=== PATIENT | female | born 1950 | race Caucasian/White ===

== ENCOUNTER 2018-01-30 08:27 | Observation (INO) | payer MEDICARE, MEDICAID ==
[2018-01-30] VITALS (11 sets, daily range): BP systolic 104–170; BP diastolic 51–92
[~2018-01-30] VITALS: Ht 172.7 cm; Wt 115.2 kg
[~2018-01-30 08:27] MED LIST: ADULT LOW DOSE81 MG PO; CARDURA8 MG PO; CELEXA40 MG PO; COREG6.25 MG; FLONASE 0.05%50 MCG NASAL; HYDRALAZINE 5050 MG PO; ISORDIL10 MG PO; LANTUS SUBQ; NITROSTAT0.4 MG SUBLING; NORVASC10 MG PO; NOVOLOG FL100 UNIT/M SUBQ; SYNTHROID175 MCG PO; SYNTHROID200 MCG PO; ZEMPLAR1 MCG PO
[2018-01-30 09:23] LABS: HEMATOCRIT 36.1 % (37.0-47.0); MCH 34.7 pg (26.0-34.0); MCHC 33.2 g/dL (28.0-37.0); MCV 104.4 fL (80.0-100.0); RBC 3.46 mil/uL (4.20-5.00); RDW-CV 14.5 % (10.5-14.5); WBC 14.8 thou/uL (4.0-11.0)
[2018-01-30] MEDS ORDERED: LEVEMIR SUBQ (09:27)
[2018-01-30 09:33] LABS: APTT 27.3 Seconds (25.0-31.3); INR 1.1; PROTIME 10.4 Seconds (9.20-11.50)
[2018-01-30] MEDS ORDERED: LASIX 40 MG TAB40 M2 PO (09:34)
[2018-01-30] MEDS ORDERED: RENVELA800 MG PO (09:37)
[2018-01-30] MEDS ORDERED: ZAROXOLYN 5MG TA5 MG PO (09:38)
[2018-01-30 09:39] LABS: ALBUMIN 3.6 g/dL (3.4-5.0); ALKALINE PHOSPHATASE 90 U/L (46-116); ANION GAP 13 mmol/L (7-16); BUN 42 mg/dL (7-18); CALCIUM 9.7 mg/dL (8.5-10.1); CHLORIDE 97 mmol/L (98-107); CHOLESTEROL 173 mg/dL (<200); CO2 27 mmol/L (21-32); GLUCOSE 195 mg/dL (70-99); HDL CHOLESTEROL 60 mg/dL (>40); LDL CHOLESTEROL 94 mg/dL (<100); SGOT 13 U/L (15-37); SGPT 26 U/L (30-65); SODIUM 137 mmol/L (136-145); TC:HDL 2.9 Ratio (Not establshd); TOTAL BILIRUBIN 0.4 mg/dL (<0.1-1.0); TOTAL PROTEIN 8.3 g/dL (6.4-8.2); TRIGLYCERIDE 99 mg/dL (<150); VLDL 20 mg/dL (<40)
[2018-01-30] MEDS ORDERED: TYLENOL EXTRA500 MG PO (09:39)
[2018-01-30 09:40] LABS: SERUM ASSESSMENT Clear
--- NOTE | 2018-01-30 16:30 | EKG ---
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1950 Requested By: Adama Rosales Order Number: [id number] Reading MD: Adama Rosales Measurements Intervals [place] Rate: 62 P: 33 DC: 239 QRS: -18 QRSD: 118 T: 78 QT: 492 QTc: 500 Interpretive Statements Sinus rhythm Prolonged DC interval LVH with secondary repolarization abnormality Borderline prolonged QT interval Compared to ECG 01/23/2014 09:51:14 First degree AV block now present Left ventricular hypertrophy now present Early repolarization now present Sinus bradycardia no longer present T-wave abnormality no longer present Electronically Signed On 01-30-2018 16:30:15 CDT by Adama Rosales [email or web address] <ELECTRONICALLY SIGNED> By: Adama Rosales MD, FACC 01/30/18 1630 1007 1007 Adama Rosales MD, FAC /EPI
--- NOTE | 2018-01-30 16:30 | EKG ---
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1950 Requested By: Julien Louie Order Number: [id number] Reading MD: Adama Rosales Measurements Intervals [place] Rate: 59 P: 30 WI: 70 QRS: -12 QRSD: 118 T: 80 QT: 515 QTc: 511 Interpretive Statements Sinus rhythm Short WI interval Incomplete left bundle branch block LVH with secondary repolarization abnormality Prolonged QT interval Compared to ECG 01/23/2014 09:51:14 Short WI interval now present Left bundle-branch block now present Left ventricular hypertrophy now present Early repolarization now present Sinus bradycardia no longer present T-wave abnormality no longer present Electronically Signed On 01-30-2018 16:30:35 CDT by Adama Rosales [email or web address] <ELECTRONICALLY SIGNED> By: Adama Rosales MD, [facility] 01/30/18 1630 1341 1341 Adama Rosales MD, [facility] /EPI
--- NOTE | 2018-01-30 17:00 | NUR ---
PT ADMITTED FROM VIDEO GAME MAKER AFTER CARDIAC CATH WITH 3 STENTS PLACED. R GROIN INSERTION, DRESSING CDI. SITE SOFT, TENDER WITH NO BRUISING NOTED. SR ON MONITOR. PEDAL PULSES PRESENT AND EQUAL BILATERAL. PT ALERT AND ORIENTED X4, PLEASANT. PT REPORTS BEING INCONTINENT OF BOWEL AND BLADDER. PT ORIENTED TO ROOM, ABLE TO MAKE NEEDS KNOWN, CALL LIGHT IN REACH.
[2018-01-31] VITALS: BP 134/43
[2018-01-31 04:00] VITALS: BP 158/58
[2018-01-31 05:35] LABS: HEMATOCRIT 29.2 % (37.0-47.0); MCHC 33.7 g/dL (28.0-37.0); MPV 9.5 fl. (7.2-11.1); RBC 2.81 mil/uL (4.20-5.00); RDW-CV 14.7 % (10.5-14.5); WBC 13.7 thou/uL (4.0-11.0)
[2018-01-31 05:42] LABS: HEMOGLOBIN 9.8 gm/dL (12.0-15.0)
[2018-01-31 05:44] LABS: ALBUMIN 2.8 g/dL (3.4-5.0); CALCIUM 8.6 mg/dL (8.5-10.1); CREATININE 5.6 mg/dL (0.6-1.3); POTASSIUM 3.7 mmol/L (3.5-5.1); TOTAL BILIRUBIN 0.4 mg/dL (<0.1-1.0); TOTAL PROTEIN 6.7 g/dL (6.4-8.2); TROPONIN-I LEVEL 0.1 ng/mL (<0.06)
--- NOTE | 2018-01-31 06:52 | NUR ---
PT IS ABLE TO COMMUNICATE HER NEEDS TO STAFF EFFECTIVELY. SHE HAS DENIED THE NEED FOR PAIN MEDICATION UP TO THIS TIME. PT IS CURRENTLY RECEIVING DIALYSIS ON A M/W/F SCHEDULE AND, SUCH, SHOULD RECEIVE A RUN TODAY. RIGHT ARM FISTULA IS POSITIVE FOR THRILL AND BRUIT. SHE HAS BEEN INCONTINENT AT TIMES, BUT HAS ALSO STARTED GETTING UP TO THE COMODE WITH SOME SUCCESS WELL.
[2018-01-31 08:00] VITALS: BP 152/53
[2018-01-31 10:58] VITALS: BP 152/53
[2018-01-31 12:00] VITALS: BP 154/52
--- NOTE | 2018-01-31 15:08 | EKG ---
[place] [address] ELECTROCARDIOGRAM REPORT Name: NIMO LEE Room: [address]#: [id number] Admission: 01/30/18 Attend Phys: Adama Rosales MD Discharge: Date of : 52 Report #: [id number] THIS REPORT FOR: //name// [facility] Test Date: 2018-01-31 Test Time: 04:12:19 Pat Name: NIMO LEE Department: Room: [facility] Gender: F Counter Molder: DAVID : 1950 Requested By: Julien Louie Order Number: [id number] Reading MD: Julien Louie Measurements Intervals [place] Rate: 67 P: 46 OK: 236 QRS: 3 QRSD: 121 T: 80 QT: 482 QTc: 509 Interpretive Statements Sinus rhythm Prolonged [place] interval Left bundle branch block Compared to ECG 01/30/2018 13:41:06 First degree AV block now present Short [place] interval no longer present Left ventricular hypertrophy no longer present Early repolarization no longer present Prolonged QT interval no longer present Electronically Signed On 01-31-2018 15:08:38 CDT by Julien Louie [email or web address] <ELECTRONICALLY SIGNED> By: Julien Louie MD, [facility] 01/31/18 1508 0412 0412 Julien Louie MD, [facility] /EPI
--- NOTE | 2018-01-31 16:39 | CARD ---
[address] [address] CARDIAC CATH REPORT Name: NIMO LEE Room: [address] Betty Diaz#: [id number] Admission: 01/30/18 Attend Phys: Adama Rosales MD Discharge: Date of : 52 Report #: [id number] THIS REPORT FOR: //name// APPROVED REPORT Study performed: 01/30/2018 11:09:23 Patient Details Patient Status: Out-Patient Room #: The patient is a 67 year-old female Event Personnel Adama Rosales Water Sander, Kavya Vivas RN Astronaut Mission Specialist, Tamiko Paniagua Monitor, José Luis Tavares Holkins, John Camera Repair Technician, Anna Patel RTEyad Monitor Procedures Performed Art Access - R femoral artery* Left Heart Cath w/LT VGram [id number] LHCLV RENEE Place w/wo Plasty Single LAD [id number] RENEE Place w/wo Plasty Single RCA [id number]; anginoplasty of the ostium of the first diagonal branch Indication Positive stress test Risk Factors Hypercholesterolemia, HypertensionRenal Failure Admission/Lab Medications/Medications given during procedure Aspirin, Platelet Aff. Inhib., Angiomax bolus and infusion Procedure Narrative The patient was brought electively to the Cardiac Catheterization Laboratory and was prepped and draped in a sterile manner. The right femoral was infiltrated with 2% Lidocaine subcutaneous anesthesia. A 6fr Ultimum Sheath sheath was inserted into the right femoral artery. Coronary angiography was performed using coronary diagnostic catheters. The right coronary system was accessed and visualized with a Diagnostic 6fr JR 4 catheter. The left coronary system was accessed and visualized with a Diagnostic 6fr JL 4 catheter. The left ventricle was accessed and visualized with a Diagnostic pigtail catheter. Left ventricular/Aortic Valve gradient assessed via catheter pullback. Left ventriculogram was performed in VELEZ projection. Pre-demployment femoral angiogram was performed . Closure device was deployed with a 6 Fr MynxGrip 6/7F[place] [address] CARDIAC CATH REPORT Name: NIMO LEE Room: [address]#: [id number] Admission: 01/30/18 Attend Phys: Adama Rosales MD Discharge: Date of : 52 Report #: [id number] the procedure well and there were no complications associated with the procedure. There was no hematoma. Intraoperative Conscious Sedation Sedation start time: 11:30 Case end Time: 12:56 Fentanyl 25 mcg Versed 1 mg Fluoro Time: 21.8 minutes Dose: DAP 723088 cGycm2 4273.62 mGy Contrast Type and Amount: Visipaque 520 ml Diagnostic Cath Left Main 0% narrowing LAD 90% tubular stenosis of the mid LAD with 90% ostial first diagonal stenosis Circumflex Nondominant vessel with 30% mid vessel narrowing Right Coronary Large dominant vessel with 75% eccentric mid right coronary stenosis 40% distal narrowing and 75% stenosis of the midportion of the posterior descending branch Left Ventriculography The left ventricle is normal in size with normal contractility. The left ventricular ejection fraction is estimated to be 65%. Left ventricular wall motion abnormalities are not present. There is no mitral insufficiency. Hemodynamics The aortic pressure is 182/66 mmHg with a mean of mmHg. The left ventricular pressure is 163/10 mmHg with a mean of mmHg. The left ventricular end diastolic pressure is 18 mmHg. There was no gradient across the aortic valve upon pullback. PCI Technique Lesion Anticoagulation was achieved with Angiomax. Percutaneous coronary intervention was performed on the first diagnonal branch segment. The lesion stenosis prior to intervention was 90% with HAMILTON 3 flow. A 6F XB LAD 3.5 Guide Catheter was used to engage the LCA ostium. A IG: BMW 190cm Interventional Guidewire was used to cross the lesion. BALLOON DILATION A Balloon catheter Mini Trek RX 1.5 X 8 was inserted and inflated up to 10.00atm for 6seconds. Final angiography reveals 40 % stenosis with [place]IL[place] 3 [place] [address] CARDIAC CATH REPORT Name: NIMO LEE Room: [address] M.R.#: [id number] Admission: 01/30/18 Attend Phys: Adama Rosales MD Discharge: Date of : 52 Report #: [id number] PCI Technique Lesion 3 Percutaneous Coronary Intervention was performed on the midl left anterior descending artery segment. Percutaneous coronary intervention was performed on the mid left anterior descending artery segment. The lesion stenosis prior to intervention was 90% with HAMILTON 3 flow. A 6F XB LAD 3.5 Guide Catheter was used to engage the LCA ostium. A IG: ProwaterFlex 180CM Interventional Guidewire was used to cross the lesion. Balloon Dilation A Balloon catheter NC Trek RX 2.25x12 was inserted and inflated up to 12.00atm for 11seconds. Additional Inflation: 16.00atm for 10seconds. Additional Inflation: 22.00atm for 16seconds. 22 RUBEN X 11 SECONDS 24 RUBEN X 16 SECONDS 25 RUBEN X 13 SECONDS Stent Deployment A drug-eluting stent Xience Alpine RX 2.25X28, 2.5x15 was inserted and inflated up to 8.00, 12-14atm for 9seconds. Additional Inflation: 10.00atm for 7seconds. Additional Inflation: 15.00atm for 9seconds. Final angiography reveals 10 % stenosis with HAMILTON 3 flow. BALLOON DILATION A Balloon catheter NC Trek RX 2.5 X 8 was inserted and inflated up to 24atm for 27seconds. Additional Inflation: 25atm for 17seconds. Additional Inflation: 16atm for 10seconds. 10 RUBEN X 6 SECONDS STENT DEPLOYMENT A drug-eluting stent Xience Alpine RX 2.5X15 was inserted and inflated up to 14atm for 11seconds. Additional Inflation: 12atm for 9seconds. Additional Inflation: 15atm for 9seconds. POST STENT DEPLOYMENT BALLOON DILATION A Balloon catheter NC Trek RX 2.5 X 12 was inserted and inflated up to 14atm for 8seconds. Additional Inflation: 16atm for 7seconds. Additional Inflation: 18atm for 10seconds. PCI Technique Lesion 4 Percutaneous Coronary Intervention was performed on the mid right coronary artery. Percutaneous coronary intervention was performed on the mid right coronary artery. The lesion stenosis prior to intervention was 75% with HAMILTON 3 flow. A 6F JR 4.0 Guide Catheter was used to engage the LCA ostium. A IG: ProwaterFlex 180CM Interventional Guidewire was used to cross the lesion. [facility] [address] [place] [address] CARDIAC CATH REPORT Name: NIMO LEE Room: [address]R.#: [id number] Admission: 01/30/18 Attend Phys: Adama Rosales MD Discharge: Date of : 52 Report #: [id number] Balloon Dilation A Balloon catheter NC Trek RX 2.5 X 12 was inserted and inflated up to 16.00atm for 12seconds. Stent Deployment A drug-eluting stent Xience Alpine RX 3.5X18 was inserted and inflated up to 10.00atm for 13seconds. Additional Inflation: 14.00atm for 8seconds. Additional Inflation: 15.00atm for 9seconds. Final angiography reveals 0 % stenosis with HAMILTON 3 flow. Conclusion #1 significant multivessel coronary artery disease characterized by the following: A 90% tubular mid LAD stenosis with 90% ostial first diagonal narrowing B 30% mid circumflex narrowing, this being a nondominant vessel C large dominant right coronary artery with 75% eccentric mid vessel narrowing 30% distal narrowing and 75% stenosis of the midportion of the posterior descending branch #2 normal left ventricular systolic function, estimate ejection fraction being 65% #3 moderate systemic systolic hypertension #4 successful percutaneous coronary intervention with deployment of sequential drug-eluting stents at the site of 90% mid LAD stenosis with 10% residual narrowing and HAMILTON-3 flow the distal vessel. #5 Successful percutaneous coronary angioplasty at the site of 90% ostial first diagonal narrowing with 40% narrowing following balloon dilatation #6 successful percutaneous coronary intervention with deployment of drug-eluting stent at the site of 75% eccentric mid right coronary stenosis with 0% residual narrowing following stent deployment and HAMILTON-3 flow the distal vessel Recommendations [place] [address] CARDIAC CATH REPORT Name: NIMO LEE Room: [address] Betty Diaz#: [id number] Admission: 01/30/18 Attend Phys: Adama Rosales MD Discharge: Date of : 52 Report #: [id number] Aggressive Medical Therapy Medications Administered Aspirin (any) Ticagrelor Diagnostic Cath Approved by: Adama Rosales MD Date/Time: 01/31/18 at 1636 hrs. <ELECTRONICALLY SIGNED> By: Julien Louie MD, FACC 01/31/18 1639 38 38Julien Louie MD, FACC /INF
[2018-01-31] MEDS ORDERED: BRILINTA90 MG PO (18:37)
[2018-01-31] MEDS ORDERED: CRESTOR10 MG PO (18:38)
[2018-01-31 18:47] VITALS: BP 152/53
--- NOTE | 2018-01-31 19:06 | NUR ---
ASSUMED CARE OF PT AT 0730. PT CONTINUES TO BE A&O X4 CALM AND COOPERATIVE. PT HAS HAD NO C/O PAIN OR DISTRESS AND HAS BEEN TRACING SR WITH A 1ST DEGREE AV BLOCK. PT WENT TO DIALYSIS TODAY AND IS DISCHARGING HOME. ALL PAPERWORK COMPLETE AND CONSTRUCTION SUPERINTENDENT WELL IV REMOVED. PT VERBALIZED UNDERSTANDING OF DC INSTRUCTIONS THAT INCLUDED MEDICATION TEACHING AND F/U CARE. PT IS JUST WAITING FOR HER RIDE TO SHOW UP.
--- NOTE | 2018-02-01 15:02 | D ---
[address] [address] DISCHARGE SUMMARY Name: NIMO LEE Room: [address] Betty Diaz#: [id number] Admission: 01/30/18 Attend Phys: Adama Rosales MD Discharge: 01/31/18 Date of : 52 Report #: [id number] THIS REPORT FOR: //name// CC: Baltazar Rosales MD [facility] DATE OF SERVICE: 01/31/2018 FINAL DISCHARGE DIAGNOSES: 1. Abnormal nuclear stress test with multi-territory ischemia. 2. Coronary artery disease. 3. Status post percutaneous coronary intervention to the mid left anterior descending and mid right coronary artery. 4. Hyperlipoproteinemia. 5. Chronic diastolic heart failure. 6. End-stage renal disease. 7. Insulin-dependent diabetes. PROCEDURES: On 01/30/2018 - left heart catheterization, selective coronary arteriography, percutaneous coronary intervention to the LAD and mid right coronary artery. HOSPITAL COURSE: The patient is a very pleasant 67-year-old female with multiple risk factors for coronary artery disease. She had a recently abnormal stress test with multi-territory ischemia. In this context, Dr. Rosales performed cardiac catheterization on 01/30/2018, which revealed significant mid LAD and mid right coronary stenoses. I deployed sequential drug-eluting stents in the mid LAD and one 3.5 x 18 drug-eluting stent in the mid right coronary artery with 10% and 0% residual narrowing following stent deployment and HAMILTON 3 flow of the distal vessels. The patient did well post-procedurally and there was good hemostasis at the right femoral site of catheterization. LABORATORY DATA: On 01/31/2018, revealed sodium 137, potassium 3.7, BUN 48 and creatinine 5.6. Hemoglobin 9.8, white blood cell count 13,700 with 184,000 platelets. Troponin 0.10. Cholesterol 173, triglycerides 99, HDL 60 and LDL 90. The patient ambulated in the hallways without difficulty, with good hemostasis at the right femoral site of catheterization. She is to undergo dialysis on 01/31/2018. She undergoes dialysis thrice weekly and that will be done post-procedurally on 01/31/2018. DISCHARGE MEDICATIONS: The patient is to [place] [address] DISCHARGE SUMMARY Name: NIMO LEE Room: [address] Emily#: [id number] Admission: 01/30/18 Attend Phys: Adama Rosales MD Discharge: 01/31/18 Date of : 52 Report #: [id number] medications: Aspirin 81 mg daily, carvedilol 6.25 mg every other day, Celexa 40 mg daily, fluticasone 1 spray daily, furosemide 40 mg b.i.d., hydralazine 50 mg every other day, NovoLog insulin in sliding scale fashion, Levemir insulin 45 units at bedtime, Synthroid 225 mcg daily alternated with 200 mcg daily, metolazone 5 mg daily, Renvela 800 mg as directed and newly instituted ticagrelor 90 mg b.i.d. with 180 mg jose-procedural loading dose. The patient is scheduled to return to see our nurse practitioner, Margy Otoole, on 02/13/2018 at 13:[address] Rosales. She is discharged to home in stable condition on the aforementioned medications with followup as iterated above. <ELECTRONICALLY SIGNED> By: Julien Louie MD, FACC 02/01/18 1502 0942 1029Joalejo Louie MD, FACC /nt
--- NOTE | 2018-02-01 16:10 | H ---
[place] [address] HISTORY AND PHYSICAL Name: NIMO LEE Room: [address] Betty Diaz#: [id number] Admission: 01/30/18 Attend Phys: Adama Rosales MD Discharge: 01/31/18 Date of : 52 Report #: [id number] THIS REPORT FOR: //name// CC: Baltazar Rosales PRIMARY CARE PHYSICIAN: Baltazar Abarca DO. BOAT PULLER: Adama Rosales MD [facility]. CHIEF COMPLAINT: Chest discomfort. HISTORY OF PRESENT ILLNESS: The patient is a 67-year-old female with a history of end-stage renal disease and history of known coronary artery disease based on a remote cardiac catheterization in 2014 at another hospitalization. She had been having increasing dyspnea and her nuclear stress test was abnormal in the apex and inferior segment. She has been having exertional symptoms, but no resting symptoms. She has also in addition occasional chest discomfort. She has dyspnea with only moderate exertion. She has a history of high blood pressure, but this has improved now that she is on hemodialysis. PAST MEDICAL HISTORY: Cardiac catheterization in 2013 showed a mid-LAD stenosis in the 60-70% range. At the time, medical management was recommended and her nuclear stress test demonstrated preserved LV function, end-stage renal disease on hemodialysis, diastolic heart failure, hyperlipidemia. PAST SURGICAL HISTORY: Prior eye surgery, appendectomy, cholecystectomy. FAMILY HISTORY: Positive for diabetes in both parents and father had heart disease as well. HOME MEDICATIONS: Coreg 6.25 mg p.o. b.i.d., Celexa 40 mg daily, Flovent, Lasix 80 mg p.o. b.i.d., NovoLog insulin, Synthroid 200 mcg daily, nitroglycerin p.r.n., nystatin, Renvela 800 mg p.o. t.i.d., vitamin D. REVIEW OF SYSTEMS: CARDIOVASCULAR: Positive chest discomfort, positive dyspnea with exertion. HEENT: Negative for nosebleeds. EYES: Denies any blurry vision, visual disturbances. RESPIRATORY: No wheezing or cough. GASTROINTESTINAL: No bleeding, black colored stools. GENITOURINARY: No dysuria or hematuria. MUSCULOSKELETAL: No joint pain or swelling. GASTROINTESTINAL: No abdominal pain. NEUROLOGIC: Denies slurred speech, visual changes, [place] [address] HISTORY AND PHYSICAL Name: NIMO LEE Room: [address]#: [id number] Admission: 01/30/18 Attend Phys: Adama Rosales MD Discharge: 01/31/18 Date of : 52 Report #: [id number] PHYSICAL EXAMINATION: VITAL SIGNS: Blood pressure is 144/62, heart rate is 74. She is 260 pounds. GENERAL: Pleasant, obese, middle-aged female. She is alert, no apparent distress. NECK: Supple. No jugular venous distention. CARDIOVASCULAR: Regular. I cannot hear a murmur or S3. LUNGS: Clear to auscultation. ABDOMEN: Soft, nontender. LABORATORY DATA: [facility] lab, in 2018; sodium 136, potassium 4.8, BUN 13, hemoglobin 12.5. IMPRESSION: 1. Coronary artery disease. 2. Exertional angina. 3. Abnormal stress test. 4. End-stage renal disease. 5. Chronic diastolic heart failure. Her symptoms are concerning for angina and she had coronary artery disease. Findings on her nuclear stress test involving an apical, lateral, and inferior defect concerning for ischemia in the setting of preserved LV function. She has a known history of coronary artery disease and prior mid LAD stenosis, which likely has progressed in severity. The risks and benefits of proceeding with a cardiac catheterization described to the patient in lay terms. The patient elects to proceed. <ELECTRONICALLY SIGNED> By: Adama Rosales MD, FACC 02/01/18 1610 1533 15Adama Rosales MD, FACC /nt
--- NOTE | 2018-02-22 14:20 | CON ---
[address] [address] CONSULTATION Name: NIMO LEE Room: [address] Betty Diaz#: [id number] Admission: 01/30/18 Attend Phys: Adama Rosales MD Discharge: 01/31/18 Date of : 52 Report #: [id number] THIS REPORT FOR: //name// CC: Baltazar Rosales DATE OF SERVICE: 01/31/2018 NEPHROLOGY CONSULTATION CONSULTING PHYSICIAN: Adama Rosales M.D. [facility]. REASON FOR NEPHROLOGY CONSULTATION: End-stage renal disease for maintenance hemodialysis. REASON FOR ADMISSION: Abnormal nuclear stress test and chest pain, for cardiac catheterization. HISTORY OF PRESENT ILLNESS: This is a 67-year-old female who has past medical history of end-stage renal disease, who is on hemodialysis at [facility] at least for the last 2 years, has diabetes and hypertension, came in with increasing dyspnea. She also had an abnormal nuclear stress test, hence she underwent a cardiac catheterization procedure yesterday. She ended up with 2 stents during the cardiac catheterization and she is supposed to go home today after her dialysis. She is feeling fine. She states that she still makes some urine. She has a right arm AV fistula. REVIEW OF SYSTEMS: She is having no chest pain, no shortness of breath. No nausea or vomiting. Other review of systems were done and they were negative. PAST MEDICAL HISTORY: Does include diabetes type 2; hypertension; end-stage renal disease, on hemodialysis; coronary artery disease and hyperlipidemia. PAST SURGICAL HISTORY: Prior eye surgery, AV fistula, appendectomy and cholecystectomy. FAMILY HISTORY: Positive for diabetes in both parents and father had heart disease as well. HOME MEDICATIONS: Include Coreg, Celexa, Flovent, Lasix, NovoLog, Synthroid, nitroglycerin, statins, Renvela and vitamin D. ALLERGIES: SULFA, LISINOPRIL AND CODEINE. PHYSICAL EXAMINATION: [place] [address] CONSULTATION Name: NIMO LEE Room: [address] Emily#: [id number] Admission: 01/30/18 Attend Phys: Adama Rosales MD Discharge: 01/31/18 Date of : 52 Report #: [id number] VITAL SIGNS: Blood pressure is 154/52, respiratory rate is 16, pulse rate is 71, temperature is 37.2 and also pulse ox is 99% on room air. GENERAL: She is awake, alert and oriented. She is seen on dialysis. She is stable on treatment. HEAD, EYES, EARS, NOSE AND THROAT: Mucous membranes are moist. NECK: There is no JVD. CHEST: Clear to auscultation bilaterally. No crackles or wheezing. CARDIOVASCULAR: S1, S2 normal. No murmurs. ABDOMEN: Soft, nontender and obese. Bowel sounds are present. EXTREMITIES: She has a right arm AV fistula with good bruit and good thrill, in use right now. Lower extremities symmetrical, no edema. NEUROLOGICAL FUNCTION: Good neurological function is intact. PSYCHIATRIC: Mood and affect seems to be normal. LABORATORY DATA: Labs from today, WBC 13.7, hemoglobin 9.8 and platelet count 184,000. Sodium 137, potassium 3.7, chloride 99, BUN is 48 and CO2 of 26. Other labs are reviewed. IMAGING: There was no imaging to be reviewed. ASSESSMENT AND PLAN: 1. End-stage renal disease, on hemodialysis. She is a Monday, Monday and Monday patient at [facility]. We will dialyze her according to her regular schedule. The patient was seen on dialysis and she was stable on treatment this afternoon. She is okay to be discharged from renal standpoint after her dialysis. 2. Anemia of chronic kidney disease: The patient gets as an outpatient. We will give her Epogen 5000 units since her hemoglobin is below goal at 9.8 today. 3. Coronary artery disease: She had an abnormal stress test, status post 2 cardiac stents this admission. 4. Hypertension: Blood pressure is controlled on her current blood pressure medication regimen. 5. Diabetes type 2. Management as per primary team. 6. Mild leukocytosis: We will defer to primary. Thank you for this consultation. As mentioned above, okay to be discharged from renal standpoint after her dialysis. <ELECTRONICALLY SIGNED> By: Yumiko Aiken MD 02/22/18 1420 [id number] Aiken MD /nt
== END 2018-01-31 19:30 | disposition home or self-care (01) ==
LOC: M.CL 08:27 → M.2W 13:08 → M.TBA-CV 13:08 → M.2W 16:17
PROVIDERS: Internal Medicine; ADMIT Internal Medicine Cardiovascular Disease
DX: I25.118 Atherosclerotic heart disease of native coronary artery with other forms of angina pectoris (principal); I13.2 Hypertensive heart and chronic kidney disease with heart failure and with stage 5 chronic kidney disease, or end stage renal disease; E11.22 Type 2 diabetes mellitus with diabetic chronic kidney disease; N18.6 End stage renal disease; I50.32 Chronic diastolic (congestive) heart failure; Z99.2 Dependence on renal dialysis; D63.1 Anemia in chronic kidney disease; E78.5 Hyperlipidemia, unspecified; D72.829 Elevated white blood cell count, unspecified; R94.39 Abnormal result of other cardiovascular function study; Z82.49 Family history of ischemic heart disease and other diseases of the circulatory system; Z79.4 Long term (current) use of insulin